=== PATIENT | male | born 1965 | race Hispanic/Latino ===

== ENCOUNTER 2017-04-01 17:38 | Emergency (ER) | payer SELFPAY ==
[2017-04-01 17:38] VITALS: BMI 21.5
[2017-04-01 17:48] VITALS: O2SAT 98
--- NOTE | 2017-04-01 18:28 | ED PDOC ---
HPI: Chest Pain Time Seen by Provider: 04/01/17 17:51 Chief Complaint (Nursing): Chest Pain Chief Complaint (Provider): Chest pain, elbow pain, head pain History Per: Patient History/Exam Limitations: no limitations Onset/Duration Of Symptoms: Days Current Symptoms Are (Timing): Still Present Modifying Factors: None Additional Complaint(s): Pt states he has been having chest pain for 2 weeks. Pt states he has history of [place] and was recently discharged. Pt states he was also diagnosed with strep pharyngitis but he could not afford the antibiotics. PT reports pain sharp, left sided. Pt under arrest and states he was injured because he resisted. Pt reports headache and states his head hit the ground and left elbow pain. Past Medical History Reviewed: Historical Data, Nursing Documentation, Vital Signs Vital Signs: Last Vital Signs Temp 98.0 F 04/01/17 17:44 Pulse 80 04/01/17 17:44 Resp 22 04/01/17 17:44 BP 119/63 04/01/17 17:44 Pulse Ox 98 04/01/17 18:30 - Medical History PMH: Anxiety, CAD, Depression (2003), Pneumonia Denies: Diabetes, Hepatitis, HIV, HTN, Chronic Kidney Disease, Seizures, Sexually Transmitted Disease - Surgical History Surgical History: No Surg Hx - Family History Family History: States: Unknown Family Hx - Living Arrangements Living Arrangements: With Family - Social History Current smoker - smoking cessation education provided: Yes Alcohol: Occasional Drugs: Denies - Immunization History Hx Tetanus Toxoid Vaccination: No Hx Influenza Vaccination: No Hx Pneumococcal Vaccination: No - Home Medications Home Medications: Ambulatory Orders Medication Instructions Recorded Azithromycin [Zithromax] 250 mg PO ASDIR #6 tablet 12/29/15 Fluticasone Propionate [Flonase] 1 spr NS BID #0 bottle 12/29/15 Oseltamivir [Tamiflu Cap] 75 mg PO BID #10 cap 12/29/15 Amoxicillin/Clavulanate [Augmentin 1 tab PO BID #14 tab 01/04/16 875 MG-125 MG] Ondansetron ODT [Zofran ODT] 4 mg PO Q8 PRN #10 odt 01/04/16 Pseudoephedrine [Sudafed Tab] 60 mg PO Q6 PRN #24 tab 01/04/16 oxyCODONE/Acetaminophen [Percocet 1 ea PO Q6 PRN #15 tab 01/04/16 5/325 mg Tab] - Allergies Allergies/Adverse Reactions: Allergies Allergy/AdvReac Type Severity Reaction Status Date / Time Penicillins Allergy RASH Verified 01/04/16 14:44 seafood Allergy SWELLING Uncoded 01/04/16 14:44 Review of Systems ROS Statement: Except As Marked, All Systems Reviewed And Found Negative Cardiovascular: Positive for: Chest Pain Respiratory: Negative for: Cough, Shortness of Breath, SOB with Exertion Skin: Positive for: Other Neurological: Positive for: Headache Physical Exam - Reviewed Nursing Documentation Reviewed: Yes Vital Signs Reviewed: Yes - Physical Exam Appears: Positive for: Well, Non-toxic, No Acute Distress Head Exam: Positive for: ATRAUMATIC, NORMAL INSPECTION, NORMOCEPHALIC Skin: Positive for: Warm. Negative for: Normal Color (Right temporal abrasion, multiple abrasion on the left elbow) Eye Exam: Positive for: Normal appearance, EOMI, PERRL ENT: Positive for: Normal ENT Inspection Neck: Positive for: Normal, Painless ROM Cardiovascular/Chest: Positive for: Regular Rate, Rhythm Respiratory: Positive for: CNT, Normal Breath Sounds Pulses-Radial (L): 2+ Pulses-Radial (R): 2+ Gastrointestinal/Abdominal: Positive for: Normal Exam, Bowel Sounds, Soft Back: Positive for: Normal Inspection Extremity: Positive for: Normal ROM (Pt seen moving left arm while in room, on my arrival reports limited ROM due to pain ) Neurologic/Psych: Positive for: Alert, Oriented - Laboratory Results Result Diagrams: 04/01/17 18:30 - ECG O2 Sat by Pulse Oximetry: 98 Medical Decision Making Medical Decision Making: CXR - Normal Repeat troponin order placed Elbow x-ray normal Head CT normal. Disposition - Clinical Impression Clinical Impression: Facial injury, Abrasion, Elbow pain, Chest pain - Patient ED Disposition Is Patient to be Admitted: Transfer of Care - Disposition Disposition: Transfer of Care Disposition Time: 19:23 Condition: GOOD
[2017-04-01 18:42] LABS: BASO # 0.1 K/uL (0.0-0.2); BASO % 0.8 % (0.0-2.0); EOS # 0.1 K/uL (0.0-0.7); EOS % 1.5 % (0.0-4.0); HEMATOCRIT 43.3 % (35.0-51.0); LYMPH # 1.5 K/uL (1.0-4.3); LYMPH % 19.5 % (20.0-40.0); MEAN CELL VOLUME 90.9 fl (80.0-94.0); MEAN CORPUSCULAR HEMOGLOBIN 29.7 pg (27.0-31.0); MEAN CORPUSCULAR HGB CONC 32.7 g/dL (33.0-37.0); MEAN PLATELET VOLUME 8.1 fl (7.2-11.7); MONO # 0.9 K/uL (0.0-0.8); MONO % 12.1 % (0.0-10.0); NEUT % 66.1 % (50.0-75.0); RED CELL DISTRIBUTION WIDTH 13.9 % (11.5-14.5); WHITE BLOOD COUNT 7.5 K/uL (4.8-10.8)
[2017-04-01 19:03] LABS: ALB/GLOB RATIO 1.4 (1.0-2.1); ALKALINE PHOSPHATASE 72 U/L (38-126); ALT/SGPT 60 U/L (21-72); AST/SGOT 53 U/L (17-59); BILIRUBIN,TOTAL 0.4 mg/dl (0.2-1.3); BLOOD UREA NITROGEN 22 mg/dl (9-20); CALCIUM 8.9 mg/dL (8.4-10.2); CARBON DIOXIDE 26 mmol/L (22-30); CHLORIDE 106 mmol/L (98-107); GFR AFRICAN-AMERICAN > 60; GLUCOSE,RANDOM 97 mg/dL (75-110); POTASSIUM 4.5 MMOL/L (3.6-5.0); SODIUM 143 mmol/l (132-148); TOTAL PROTEIN 7.6 G/DL (6.3-8.2)
--- NOTE | 2017-04-01 19:17 | CT ---
PROCEDURE: CT HEAD WITHOUT CONTRAST. HISTORY: HEAD INJURY COMPARISON: Comparison is made to the previous study dated 01/04/2016 TECHNIQUE: Axial computed tomography images were obtained through the head/brain without intravenous contrast. Radiation dose: Total exam DLP = 920.21 mGy-cm. This CT exam was performed using one or more of the following dose reduction techniques: Automated exposure control, adjustment of the mA and/or kV according to patient size, and/or use of iterative reconstruction technique. FINDINGS: HEMORRHAGE: No intracranial hemorrhage. BRAIN: No mass effect or edema. No atrophy or chronic microvascular ischemic changes. VENTRICLES: Unremarkable. No hydrocephalus. CALVARIUM: Unremarkable. PARANASAL SINUSES: Unremarkable as visualized. No significant inflammatory changes. MASTOID AIR CELLS: Unremarkable as visualized. No inflammatory changes. OTHER FINDINGS: None. IMPRESSION: No evidence of acute intracranial hemorrhage intracranial collection mass effect or midline shift.
--- NOTE | 2017-04-01 20:32 | ED PDOC ---
- Laboratory Results Result Diagrams: 04/01/17 18:30 04/01/17 18:30 - ECG O2 Sat by Pulse Oximetry: 98 Pulse Ox Interpretation: Normal - Progress ED Course And Treament: Case was signed out to senior medical writer from [facility] pending diagnostic testing results and final disposition. 20:30: Second troponin to be drawn at 22:30. Crisis eval pending. 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 Campbell, patient does not meet criteria for psych admission and is stable for discharge. 23:30: Second trop is negative. Patient is medically and psychiatrically stable for incarceration. Disposition - Clinical Impression Clinical Impression: Facial injury, Abrasion, Elbow pain, Chest pain - POA Present On Arrival: None - Disposition Disposition: Discharged/Transfer to Law Enforcement Disposition Time: 23:31 Condition: FAIR Additional Instructions: Patient is medically and psychiatrically stable for incarceration Instructions: Chest Pain (ED), Elbow Sprain (ED), Abrasion (ED), Facial Contusion (ED)
--- NOTE | 2017-04-01 22:23 | RAD ---
HISTORY: chest pain COMPARISON: Chest x-ray performed 12/27/15 TECHNIQUE: Chest PA and lateral FINDINGS: LUNGS: Hyperinflation may be seen in the setting of COPD. No focal consolidation. Please note that chest x-ray has limited sensitivity for the detection of pulmonary masses. PLEURA: No significant pleural effusion identified. No definite pneumothorax . CARDIOVASCULAR: The cardiomediastinal silhouette appears within normal limits of size. OSSEOUS STRUCTURES: No acute osseous abnormality identified. VISUALIZED UPPER ABDOMEN: Unremarkable. OTHER FINDINGS: None. IMPRESSION: Hyperinflation may be seen in the setting of COPD.
[2017-04-01 23:48] VITALS: BP 103/67; PULSE 84; RESP 15; TEMP 98.2
--- NOTE | 2017-04-02 09:35 | RAD ---
Indication: Elbow pain Left elbow radiographs Comparison: None available Findings: No acute displaced fracture or dislocation identified. No significant joint effusion appreciated. Soft tissues appear grossly unremarkable. No evidence of radiopaque foreign body. Impression: No acute displaced fracture or dislocation identified. If high clinical index of suspicion for occult fracture, recommend further evaluation with cross-sectional imaging.
== END 2017-04-01 23:52 ==
LOC: H.ER 17:38
DX: R07.9 Chest pain, unspecified (principal); S00.81XA Abrasion of other part of head, initial encounter; S09.93XA Unspecified injury of face, initial encounter; M25.522 Pain in left elbow; Y35.813A Legal intervention involving manhandling, suspect injured, initial encounter; Y92.89 Other specified places as the place of occurrence of the external cause; F17.200 Nicotine dependence, unspecified, uncomplicated; F32.9 Major depressive disorder, single episode, unspecified; F41.9 Anxiety disorder, unspecified; I25.10 Atherosclerotic heart disease of native coronary artery without angina pectoris; Z88.0 Allergy status to penicillin

== ENCOUNTER 2017-05-23 11:03 | Emergency (ER) | payer SELFPAY ==
[2017-05-23 11:04] VITALS: BMI 21.5
[2017-05-23 11:27] VITALS: TEMP 97.1; O2SAT 100
[2017-05-23 12:03] LABS: BASO # 0.1 K/uL (0.0-0.2); BASO % 0.9 % (0.0-2.0); EOS # 0.1 K/uL (0.0-0.7); HEMOGLOBIN 13.8 g/dL (12.0-18.0); LYMPH # 1.4 K/uL (1.0-4.3); LYMPH % 18.9 % (20.0-40.0); MEAN CELL VOLUME 89.6 fl (80.0-94.0); MEAN CORPUSCULAR HEMOGLOBIN 30.2 pg (27.0-31.0); MEAN CORPUSCULAR HGB CONC 33.8 g/dL (33.0-37.0); MEAN PLATELET VOLUME 7.8 fl (7.2-11.7); MONO # 0.6 K/uL (0.0-0.8); MONO % 8.7 % (0.0-10.0); NEUT % 69.5 % (50.0-75.0); RBC 4.57 Mil/uL (4.40-5.90); RED CELL DISTRIBUTION WIDTH 14.2 % (11.5-14.5); WHITE BLOOD COUNT 7.2 K/uL (4.8-10.8)
[2017-05-23 12:21] LABS: ALB/GLOB RATIO 1.3 (1.0-2.1); ALT/SGPT 41 U/L (21-72); AST/SGOT 24 U/L (17-59); BLOOD UREA NITROGEN 18 mg/dl (9-20); CALCIUM 8.9 mg/dL (8.4-10.2); GFR AFRICAN-AMERICAN > 60; GFR NON-AFRICAN AMERICAN > 60
[2017-05-23 12:24] LABS: PROTHROMBIN TIME 11.7 Seconds (9.8-13.1)
[2017-05-23 12:25] LABS: PARTIAL THROMBOPLASTIN TIME 36.7 Seconds (25.6-37.1)
--- NOTE | 2017-05-23 12:48 | RAD ---
HISTORY: Chest pain COMPARISON: 04/01/2017. FINDINGS: LUNGS: The lungs are well inflated. There is airspace disease in the left lower lobe. The right lung is clear. PLEURA: No significant pleural effusion identified, no pneumothorax apparent. CARDIOVASCULAR: Normal. OSSEOUS STRUCTURES: No significant abnormalities. VISUALIZED UPPER ABDOMEN: Normal. OTHER FINDINGS: None. IMPRESSION: Suspect left lower lobe atelectasis/ pneumonia. Follow-up after medical management is recommended to ensure complete resolution.
--- NOTE | 2017-05-23 13:15 | ED PDOC ---
HPI: Chest Pain Time Seen by Provider: 05/23/17 11:24 Chief Complaint (Nursing): Chest Pain Chief Complaint (Provider): Chest Pain History Per: Patient History/Exam Limitations: no limitations Onset/Duration Of Symptoms: Hrs (Since 7:30) Current Symptoms Are (Timing): Still Present Additional Complaint(s): 51 y/o male with a past medical history of myocardial infraction (x2) presents to the emergency department with a complaint of an intermittent left-sided chest pain since 7:30 this morning. Denies taking medications for the relief of pain, radiation of pain elsewhere, shortness of breath and nausea. Past Medical History Reviewed: Historical Data, Nursing Documentation, Vital Signs Vital Signs: Last Vital Signs Temp 97.1 F L 05/23/17 11:24 Pulse 56 L 05/23/17 12:50 Resp 18 05/23/17 12:50 BP 115/76 05/23/17 12:50 Pulse Ox 100 05/23/17 13:39 - Medical History PMH: Anxiety, CAD, Depression (2003), Pneumonia Denies: Diabetes, Hepatitis, HIV, HTN, Chronic Kidney Disease, Seizures, Sexually Transmitted Disease Other PMH: Myocardial infraction x2 - Surgical History Surgical History: No Surg Hx - Family History Family History: States: Unknown Family Hx - Social History Current smoker - smoking cessation education provided: No Alcohol: None Drugs: Denies (Use of cocaine) - Immunization History Hx Tetanus Toxoid Vaccination: No Hx Influenza Vaccination: No Hx Pneumococcal Vaccination: No - Home Medications Home Medications: Ambulatory Orders Medication Instructions Recorded No Known Home Med 05/23/17 - Allergies Allergies/Adverse Reactions: Allergies Allergy/AdvReac Type Severity Reaction Status Date / Time Penicillins Allergy RASH Verified 01/04/16 14:44 seafood Allergy SWELLING Uncoded 01/04/16 14:44 Review of Systems ROS Statement: Except As Marked, All Systems Reviewed And Found Negative Cardiovascular: Positive for: Chest Pain (Left-sided) Respiratory: Negative for: Shortness of Breath Gastrointestinal: Negative for: Nausea Physical Exam - Reviewed Nursing Documentation Reviewed: Yes Vital Signs Reviewed: Yes - Physical Exam Appears: Positive for: Non-toxic, No Acute Distress Head Exam: Positive for: ATRAUMATIC, NORMAL INSPECTION, NORMOCEPHALIC Skin: Positive for: Normal Color, Warm, Dry Eye Exam: Positive for: EOMI, Normal appearance, PERRL Neck: Positive for: Normal, Painless ROM, Supple Cardiovascular/Chest: Positive for: Regular Rate, Rhythm. Negative for: Murmur Respiratory: Positive for: Normal Breath Sounds. Negative for: Accessory Muscle Use, Respiratory Distress Gastrointestinal/Abdominal: Positive for: Normal Exam, Soft. Negative for: Tenderness Back: Positive for: Normal Inspection. Negative for: Vertebral Tenderness Extremity: Positive for: Normal ROM. Negative for: Pedal Edema, Deformity Neurologic/Psych: Positive for: Alert, Oriented - Laboratory Results Result Diagrams: 05/23/17 11:58 05/23/17 11:58 - ECG O2 Sat by Pulse Oximetry: 100 (RA) Pulse Ox Interpretation: Normal Medical Decision Making Medical Decision Making: Time: 11:37 Initial impression: Chest pain Initial plan: --Electrocardiogram --COMP Metabolic Panel --Troponin I --EKG-ED --CBC w/ differential --Partial Thromboplastin Time (COAG) --Prothrombin Time (COAG) --Chest Portable (RAD) --Reevaluation Time: 12:38 --Drug Screen, Urine --Aspirin 325 mg PO Time: 12:46 --Chest X-ray FINDINGS: LUNGS: The lungs are well inflated. There is airspace disease in the left lower lobe. The right lung is clear. PLEURA: No significant pleural effusion identified, no pneumothorax apparent. CARDIOVASCULAR: Normal. OSSEOUS STRUCTURES: No significant abnormalities. VISUALIZED UPPER ABDOMEN: Normal. OTHER FINDINGS: None. IMPRESSION: Suspect left lower lobe atelectasis/ pneumonia. Follow-up after medical management is recommended to ensure complete resolution. Time: 13:15 --At this time, blood was found on bed. Patient eloped from the ER. Scribe Attestation: Documented by Luci Blanco, acting as a scribe for Delaney Winston MD. Provider Scribe Attestation: All medical record entries made by the Scribe were at my direction and personally dictated by me. I have reviewed the chart and agree that the record accurately reflects my personal performance of the history, physical exam, medical decision making, and the department course for this patient. I have also personally directed, reviewed, and agree with the discharge instructions and disposition. Disposition - Clinical Impression Clinical Impression: Chest pain - Disposition Disposition: Eloped Disposition Time: 13:15 Condition: STABLE
[2017-05-23 13:19] VITALS: BP 115/76; PULSE 56; RESP 18
--- NOTE | 2017-05-24 08:27 | CARD ---
APPROVED REPORT EKG Measurement Heart [id number] <Conclusion> Sinus bradycardia Voltage criteria for left ventricular hypertrophy Early repolarization Abnormal ECG
== END 2017-05-23 13:34 | disposition left against medical advice (07) ==
LOC: H.ER 11:03
DX: R07.89 Other chest pain (principal); F41.9 Anxiety disorder, unspecified; I25.10 Atherosclerotic heart disease of native coronary artery without angina pectoris; Z79.82 Long term (current) use of aspirin; Z88.0 Allergy status to penicillin

== ENCOUNTER 2017-12-09 02:28 | Observation (INO) | payer MEDICAID ==
[2017-12-09] MEDS ORDERED: Sodium Chloride 0.9% 1,000 ML IV STA (03:20)
[2017-12-09 03:26] LABS: ABG ALLEN TEST YES; ARTERIAL BLOOD GAS HCO3 26.4 mmol/L (21-28); ARTERIAL BLOOD GAS O2 CAPACITY 18.7 mL/dL (16-24); ARTERIAL BLOOD GAS O2 CONTENT 18.5 ML/dL (15-23); ARTERIAL BLOOD GAS O2 SAT 98.9 % (95-98); ARTERIAL BLOOD GAS PCO2 47 mm/Hg (35-45); ARTERIAL BLOOD GAS PH 7.38 (7.35-7.45); ARTERIAL BLOOD GAS PO2 150 mm/Hg (80-100); ARTERIAL BLOOD GAS TCO2 29.2 mmol/L (22-28)
[2017-12-09 03:39] LABS: BASO # 0.1 K/uL (0.0-0.2); BASO % 0.8 % (0.0-2.0); EOS # 0.4 K/uL (0.0-0.7); EOS % 4.8 % (0.0-4.0); HEMOGLOBIN 13.7 g/dL (12.0-18.0); LYMPH # 2.4 K/uL (1.0-4.3); LYMPH % 30.2 % (20.0-40.0); MEAN CELL VOLUME 89.6 fl (80.0-94.0); MEAN CORPUSCULAR HGB CONC 33.5 g/dL (33.0-37.0); MEAN PLATELET VOLUME 7.9 fl (7.2-11.7); MONO # 0.8 K/uL (0.0-0.8); MONO % 10.5 % (0.0-10.0); NEUT # 4.3 K/uL (1.8-7.0); NEUT % 53.7 % (50.0-75.0); NRBC % 0.1 % (0.0-0.0); RBC 4.55 Mil/uL (4.40-5.90); RED CELL DISTRIBUTION WIDTH 13.9 % (11.5-14.5)
--- NOTE | 2017-12-09 03:41 | ED PDOC ---
HPI: Chest Pain Time Seen by Provider: 12/09/17 02:38 Chief Complaint (Nursing): Chest Pain Chief Complaint (Provider): Chest Pain History Per: Patient History/Exam Limitations: no limitations Onset/Duration Of Symptoms: Days (x 2) Current Symptoms Are (Timing): Still Present Additional Complaint(s): 52 year old male with no significant medical history presents of the ED with a worsening headache and nausea, onset yesterday morning (20 hours prior). 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 Also complains of chest tightness. Smokes a pack of day until recently when he cut down to a half pack. The symptoms have gotten worse this last hour. Denies fever, cough, neck pain, or shortness of breath. PMD: none provided Past Medical History Reviewed: Historical Data, Nursing Documentation, Vital Signs Vital Signs: Last Vital Signs Temp 98.2 F 12/09/17 05:56 Pulse 56 L 12/09/17 05:56 Resp 17 12/09/17 05:56 BP 121/59 L 12/09/17 05:56 Pulse Ox 100 12/09/17 05:56 - Medical History PMH: Anxiety, CAD, Depression (2003), Pneumonia Denies: Diabetes, Hepatitis, HIV, HTN, Chronic Kidney Disease, Seizures, Sexually Transmitted Disease - Surgical History Surgical History: No Surg Hx - Family History Family History: States: Unknown Family Hx - Social History Current smoker - smoking cessation education provided: Yes (Heavy Smoker > 10 cigarettes) - Immunization History Hx Tetanus Toxoid Vaccination: No Hx Influenza Vaccination: No Hx Pneumococcal Vaccination: No - Home Medications Home Medications: Ambulatory Orders Medication Instructions Recorded No Known Home Med 05/23/17 - Allergies Allergies/Adverse Reactions: Allergies Allergy/AdvReac Type Severity Reaction Status Date / Time Penicillins Allergy RASH Verified 01/04/16 14:44 seafood Allergy SWELLING Uncoded 01/04/16 14:44 Review of Systems ROS Statement: Except As Marked, All Systems Reviewed And Found Negative Constitutional: Negative for: Fever Cardiovascular: Positive for: Chest Pain Respiratory: Negative for: Cough, Shortness of Breath Gastrointestinal: Positive for: Nausea Musculoskeletal: Negative for: Neck Pain Neurological: Positive for: Headache Physical Exam - Reviewed Nursing Documentation Reviewed: Yes Vital Signs Reviewed: Yes - Physical Exam Appears: Positive for: Non-toxic, Uncomfortable Head Exam: Positive for: ATRAUMATIC, NORMOCEPHALIC Skin: Positive for: Normal Color, Warm, Dry Eye Exam: Positive for: EOMI, Normal appearance, PERRL Neck: Positive for: Normal, Painless ROM, Supple Cardiovascular/Chest: Positive for: Regular Rate, Rhythm Respiratory: Positive for: Normal Breath Sounds. Negative for: Respiratory Distress Gastrointestinal/Abdominal: Positive for: Normal Exam, Soft Back: Positive for: Normal Inspection Extremity: Positive for: Normal ROM. Negative for: Deformity Neurologic/Psych: Positive for: Alert, Oriented - Laboratory Results Result Diagrams: 12/09/17 03:35 12/09/17 03:35 - ECG O2 Sat by Pulse Oximetry: 98 (RA) Pulse Ox Interpretation: Normal Medical Decision Making Medical Decision Making: Time: 03:12 Impression: 52 year old male with headache and nausea in setting of carbon monoxide exposure Initial Plan: --EKG --ABG --Alcohol serum --CMP --Urine drug --Troponin I --CBC with differentials --Sodium chloride IV 1,000 mls/hr --Toradol 10 mg IVP --Zofran Inj 4 mg IV Labs revealed no clinically significant abnormalities except for elevated carboxyhemoglobin levels. Urine drug screen is positive for cocaine. Upon further questioning, he admits to using cocaine 1 week ago. Patient will be admitted into observation for cocaine abuse, chest pain and carbon monoxide exposure to the service of Dr. Huff. Scribe Attestation: Documented by Olga Milian, acting as a scribe for Chai Cody MD. Provider Scribe Attestation: All medical record entries made by the Scribe were at my direction and personally dictated by me. I have reviewed the chart and agree that the record accurately reflects my personal performance of the history, physical exam, medical decision making, and the department course for this patient. I have also personally directed, reviewed, and agree with the discharge instructions and disposition. Disposition - Clinical Impression Clinical Impression: Chest pain, Cocaine abuse, Carbon monoxide exposure - Patient ED Disposition Is Patient to be Admitted: Yes - Disposition Disposition Time: 04:20 Condition: FAIR Patient Signed Over To: Tee Huff - Pt Status Changed To: Hospital Disposition Of: Observation
[2017-12-09 03:46] LABS: ALB/GLOB RATIO 1.4 (1.0-2.1); ALBUMIN 4.1 g/dL (3.5-5.0); ALT/SGPT 37 U/L (21-72); AST/SGOT 25 U/L (17-59); BLOOD UREA NITROGEN 25 mg/dl (9-20); GFR AFRICAN-AMERICAN > 60; GFR NON-AFRICAN AMERICAN > 60
[2017-12-09 03:53] LABS: BARBITURATES, UR NEGATIVE (NEGATIVE); BENZODIAZEPINES, UR NEGATIVE (NEGATIVE); OPIATES, UR NEGATIVE (NEGATIVE); PHENCYCLIDINE, UR NEGATIVE (NEGATIVE)
--- NOTE | 2017-12-09 04:33 | CP.PCM.HP ---
History of Present Illness - History of Present Illness History of Present Illness: PMD: None Chief complaint: Chest Pain The patient was seen and examined in the ED HPI: The hx is obtained from the medical records as the patient is very sleepy only answering by shaking the head. He is a 52 years old male with hx of CAD, Pneumonia, Depression and CAD comes with a Precordial chest tight that is continuous associated with Nausea and headache. 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 He recently cut down from 1 pack daily to half pack daily of cigarettes. He comes because of worsening of the symptoms. No coughing, SOB, dizziness PMH: Anxiety, CAD, Depression (2003), Pneumonia PSH: No Surg Hx SH: occasional Alcohol; smokes Heavily; Cocaine drug use; FH: States: Unknown Family Hx Allergies: PCN / Sea Food Medicine: None Present on Admission - Present on Admission Any Indicators Present on Admission: No History of DVT/PE: No History of Uncontrolled Diabetes: No Urinary Catheter: No Decubitus Ulcer Present: No Review of Systems - Review of Systems Review of Systems: Review of Symptoms limited because the patient is sleepy - Constitutional Constitutional: Headache - EENT Eyes: Requires Corrective Lenses Nose/Mouth/Throat: absent: Epistaxis, Nasal Congestion - Cardiovascular Cardiovascular: Chest Pain - Gastrointestinal Gastrointestinal: Melena Past Patient History - Past Medical History & Family History Past Medical History?: Yes - Past Social History Smoking Status: Heavy Smoker > 10 Cigarettes Daily Chewing Tobacco Use: No Cigar Use: No Drugs: Cocaine - CARDIAC Hx Hypertension: No Other/Comment: Coronary disease - PULMONARY Hx Pneumonia: Yes Other/Comment: Influenza 2/16 - NEUROLOGICAL Hx Neurological Disorder: No Hx Seizures: No - HEENT Hx HEENT Problems: No - RENAL Hx Chronic Kidney Disease: No - ENDOCRINE/METABOLIC Hx Endocrine Disorders: No - HEMATOLOGICAL/ONCOLOGICAL Hx Blood Disorders: No Hx Human Immunodeficiency Virus (HIV): No - INTEGUMENTARY Hx Dermatological Problems: No - MUSCULOSKELETAL/RHEUMATOLOGICAL Hx Musculoskeletal Disorders: No Hx Falls: No - GASTROINTESTINAL Hx Gastrointestinal Disorders: No - GENITOURINARY/GYNECOLOGICAL Hx Sexually Transmitted Disorders: No - PSYCHIATRIC Hx Anxiety: Yes Hx Depression: Yes (2003) Hx Schizophrenia: Yes - SURGICAL HISTORY Hx Surgeries: Yes Hx Herniorrhaphy: Yes (age 3) - ANESTHESIA Hx Anesthesia: Yes Hx Anesthesia Reactions: No Hx Malignant Hyperthermia: No Meds Allergies/Adverse Reactions: Allergies Allergy/AdvReac Type Severity Reaction Status Date / Time Penicillins Allergy RASH Verified 01/04/16 14:44 seafood Allergy SWELLING Uncoded 01/04/16 14:44 Physical Exam - Constitutional Appears: No Acute Distress - Head Exam Head Exam: ATRAUMATIC, NORMAL INSPECTION, NORMOCEPHALIC - Eye Exam Eye Exam: EOMI, Normal appearance Pupil Exam: NORMAL ACCOMODATION - ENT Exam ENT Exam: Mucous Membranes Dry, Normal Exam - Neck Exam Neck exam: Positive for: Full Rom, Normal Inspection. Negative for: Lymphadenopathy, Tenderness - Respiratory Exam Respiratory Exam: Clear to Auscultation Bilateral. absent: Rales, Rhonchi, Wheezes - Cardiovascular Exam Cardiovascular Exam: REGULAR RHYTHM, RRR, +S1, +S2 - GI/Abdominal Exam GI & Abdominal Exam: Normal Bowel Sounds, Soft. absent: Mass, Organomegaly, Tenderness - Rectal Exam Rectal Exam: Deferred - Extremities Exam Extremities exam: Positive for: full ROM, normal inspection. Negative for: calf tenderness, pedal edema - Back Exam Back exam: NORMAL INSPECTION. absent: CVA tenderness (L), CVA tenderness (R) - Neurological Exam Neurological exam: CN II-XII Intact, Oriented x3, Reflexes Normal Additional comments: Sleepy - Psychiatric Exam Psychiatric exam: Normal Affect, Normal Mood - Skin Skin Exam: Dry, Intact, Normal Color, Warm Results - Vital Signs Recent Vital Signs: Last Vital Signs Temp 97.5 F L 12/09/17 02:46 Pulse 58 L 12/09/17 03:14 Resp 17 12/09/17 02:46 BP 112/53 L 12/09/17 02:46 Pulse Ox 98 12/09/17 04:20 - Labs Result Diagrams: 12/09/17 03:35 12/09/17 03:35 Labs: Laboratory Results - last 24 hr 12/09/17 12/09/17 12/09/17 03:23 03:35 03:35 WBC 8.0 RBC 4.55 Hgb 13.7 Hct 40.8 MCV 89.6 MCH 30.0 MCHC 33.5 RDW 13.9 Plt Count 251 MPV 7.9 Neut % (Auto) 53.7 Lymph % (Auto) 30.2 [place] % (Auto) 10.5 H Eos % (Auto) 4.8 H Baso % (Auto) 0.8 Neut # 4.3 Lymph # 2.4 [place] # 0.8 Eos # 0.4 Baso # 0.1 pCO2 47 H pO2 150 H HCO3 26.4 ABG pH 7.38 ABG Total CO2 29.2 H ABG O2 Saturation 98.9 H ABG O2 Content 18.5 ABG Base Excess 2.0 ABG Hemoglobin 14.0 ABG Carboxyhemoglobin 3.7 H POC ABG HHb (Measured) 1.0 ABG Methemoglobin 2.6 ABG O2 Capacity 18.7 Kali Test Yes A-a O2 Difference 19.0 Hgb O2 Saturation 92.6 L Vent Mode N/c FiO2 32.0 Sodium 143 Potassium 4.5 Chloride 105 Carbon Dioxide 26 Anion Gap 17 BUN 25 H Creatinine 0.7 L Est GFR ( Amer) > 60 Est GFR (Non-Af Amer) > 60 Random Glucose 86 Calcium 9.0 Total Bilirubin 0.3 AST 25 ALT 37 Alkaline Phosphatase 61 Troponin I < 0.0120 Total Protein 7.1 Albumin 4.1 Globulin 3.0 Albumin/Globulin Ratio 1.4 Urine Opiates Screen Urine Methadone Screen Ur Barbiturates Screen Ur Phencyclidine Scrn Ur Amphetamines Screen U Benzodiazepines Scrn U Oth Cocaine Metabols U Cannabinoids Screen Alcohol, Quantitative < 10 12/09/17 03:35 WBC RBC Hgb Hct MCV MCH MCHC RDW Plt Count MPV Neut % (Auto) Lymph % (Auto) [place] % (Auto) Eos % (Auto) Baso % (Auto) Neut # Lymph # [place] # Eos # Baso # pCO2 pO2 HCO3 ABG pH ABG Total CO2 ABG O2 Saturation ABG O2 Content ABG Base Excess ABG Hemoglobin ABG Carboxyhemoglobin POC ABG HHb (Measured) ABG Methemoglobin ABG O2 Capacity Kali Test A-a O2 Difference Hgb O2 Saturation Vent Mode FiO2 Sodium Potassium Chloride Carbon Dioxide Anion Gap BUN Creatinine Est GFR ( Amer) Est GFR (Non-Af Amer) Random Glucose Calcium Total Bilirubin AST ALT Alkaline Phosphatase Troponin I Total Protein Albumin Globulin Albumin/Globulin Ratio Urine Opiates Screen Negative Urine Methadone Screen Negative Ur Barbiturates Screen Negative Ur Phencyclidine Scrn Negative Ur Amphetamines Screen Negative U Benzodiazepines Scrn Negative U Oth Cocaine Metabols Positive H U Cannabinoids Screen Negative Alcohol, Quantitative - Imaging and Cardiology Chest x-ray Status: Image reviewed by me Additional comment: Interstitial infiltrate at the right para-cardiac border Assessment & Plan - Assessment and Plan (Free Text) Assessment: #. Chest Pain #. RLL Infiltrate r/o Pneumonia #. Carbon Monoxide Exposure #. Dehydration #. 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 #. Chest Pain r/o ACS although patient also has a RLL infiltrate - Serial Troponin - EKG - Lipid profile - ASA - Lipitor #. RLL Infiltrate r/o Pneumonia - consult Dr Joe Pulmonary - Rapid Influenza test - Azithromycin #. Carbon Monoxide Exposure - NRBM Oxygen - Toradol - Zofran for nausea - ABG #. Dehydration - IV Fluid - Follow Renal labs #. Cocaine Abuse - Ativan for Agitation #. DVT prophylaxis with Lovenox #. Code Status: Full - Date & Time Date: 12/09/17 Time: 04:33
[2017-12-09] MEDS: Sodium Chloride 0.9% 1,000 ML IV SCH ×3 (05:31→20:23)
[2017-12-09] MEDS: Azithromycin 500 MG in Sodium Chloride 0.9% 250 ML IVPB SCH (05:32)
[2017-12-09] MEDS ORDERED: Azithromycin 500 MG IV IVPB ONE (05:35)
[2017-12-09 06:20] LABS: HDL CHOLESTEROL 46 MG/DL (30-70)
[2017-12-09 06:32] LABS: LDL CHOLESTEROL 81 mg/dL (0-129)
[2017-12-09] MEDS: Enoxaparin 40 mg Syringe SC SCH (09:38)
--- NOTE | 2017-12-09 10:23 | RAD ---
HISTORY: chest pain COMPARISON: Comparison chest dated 05/23/2017 FINDINGS: LUNGS: Mild bibasilar atelectasis right greater than left; developing lower lobe infiltrate could be excluded with followup radiographs PLEURA: No significant pleural effusion identified, no pneumothorax apparent. CARDIOVASCULAR: Normal. OSSEOUS STRUCTURES: No significant abnormalities. VISUALIZED UPPER ABDOMEN: Normal. OTHER FINDINGS: None. IMPRESSION: Mild bibasilar atelectasis right greater than left ; developing lower lobe infiltrate could be excluded with followup radiographs
[2017-12-09] MEDS ORDERED: Pneumococcal 23-Valent Vaccine IM ONE (16:39)
[2017-12-09] MEDS ORDERED: Influenza Vaccine 18yr & older 0.5 ML/45 MCG SYR IM ONE (16:39)
--- NOTE | 2017-12-09 17:18 | CP.PCM.CON ---
History of Present Illness - History of Present Illness History of Present Illness: Pulmonary consult for a 52 y/o M, Hx of PNA, CAD, Depression. Came to ED [facility] on 12/09/16 c/o of Precordial Chest pain associated to headache and nausea with no relief. 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 CXR reveals: Mild bibasilar atelectasis R > L. Developing lower lobe infiltrate could be excluded. Pt denied: SOB, cough, hemoptysis, dizziness, palpitations, syncope, night sweats, abdominal pain, n/v/d, urinary symptoms, sick contact, recent travel out of [place]. PMHx: Schizophrenia 2014, multiple facial Fx 2nd to trauma 2015, Hx PNA, Depression, CAD. Review of Systems - Constitutional Constitutional: Headache - EENT Eyes: Requires Corrective Lenses Ears: Other (negative) Nose/Mouth/Throat: Other (negative) - Cardiovascular Cardiovascular: Chest Pain, Slow Heart Rate - Respiratory Respiratory: Other (negative) - Gastrointestinal Gastrointestinal: Other (negative) - Genitourinary Genitourinary: Other (negative) - Musculoskeletal Musculoskeletal: Other (negative) - Integumentary Integumentary: Other (negative) - Neurological Neurological: Other (negative) - Psychiatric Psychiatric: Anxiety - Endocrine Endocrine: Other (negative) - Hematologic/Lymphatic Hematologic: Other (negative) Past Patient History - Past Medical History & Family History Past Medical History?: Yes - Past Social History Smoking Status: Heavy Smoker > 10 Cigarettes Daily Alcohol: None Drugs: Cocaine Home Situation {Lives}: With Family - CARDIAC Hx Cardiac Disorders: Yes - PULMONARY Hx Respiratory Disorders: No - NEUROLOGICAL Hx Neurological Disorder: No - HEENT Hx HEENT Problems: No - RENAL Hx Chronic Kidney Disease: No - ENDOCRINE/METABOLIC Hx Endocrine Disorders: No - HEMATOLOGICAL/ONCOLOGICAL Hx Blood Disorders: No Hx AIDS: No Hx Human Immunodeficiency Virus (HIV): No - INTEGUMENTARY Hx Dermatological Problems: No - MUSCULOSKELETAL/RHEUMATOLOGICAL Hx Musculoskeletal Disorders: No Hx Falls: No - GASTROINTESTINAL Hx Gastrointestinal Disorders: No - GENITOURINARY/GYNECOLOGICAL Hx Genitourinary Disorders: No - PSYCHIATRIC Hx Psychophysiologic Disorder: Yes Hx Anxiety: Yes Hx Depression: Yes Hx Substance Use: Yes Other/Comment: stress - SURGICAL HISTORY Hx Surgeries: Yes Hx Herniorrhaphy: Yes (age 3) - ANESTHESIA Hx Anesthesia: Yes Hx Anesthesia Reactions: No Hx Malignant Hyperthermia: No Meds Home Medications: Home Medication List Medication Instructions Recorded Confirmed Type Aspirin [Ecotrin] 81 mg PO DAILY #30 tabec 12/10/17 Rx Atorvastatin [Lipitor] 10 mg PO DAILY #30 tab 12/10/17 Rx Allergies/Adverse Reactions: Allergies Allergy/AdvReac Type Severity Reaction Status Date / Time Penicillins Allergy RASH Verified 01/04/16 14:44 seafood Allergy SWELLING Uncoded 01/04/16 14:44 - Medications Medications: Current Medications Aspirin (Ecotrin) 81 mg PO DAILY [facility] Last Admin: 12/09/17 09:38 Dose: 81 mg Atorvastatin Calcium (Lipitor) 10 mg PO DAILY [facility] Last Admin: 12/09/17 09:38 Dose: 10 mg Enoxaparin Sodium (Lovenox) 40 mg SC DAILY [facility] PRN Reason: Protocol Last Admin: 12/09/17 09:38 Dose: 40 mg Sodium Chloride (Sodium Chloride 0.9%) 1,000 mls @ 125 mls/hr IV .Q8H [facility] Stop: 12/10/17 04:56 Last Admin: 12/09/17 15:35 Dose: 125 mls/hr Azithromycin 500 mg/ Sodium (Chloride) 250 mls @ 250 mls/hr IVPB DAILY [facility] PRN Reason: Protocol Last Admin: 12/09/17 05:32 Dose: 250 mls/hr Ketorolac Tromethamine (Toradol) 15 mg IVP Q6 PRN PRN Reason: Headache Lorazepam (Ativan) 1 mg IVP Q6 PRN PRN Reason: Agitation Nicotine (Nicoderm Cq) 1 patch TD DAILY [facility] Ondansetron HCl (Zofran Inj) 4 mg IVP Q4 PRN PRN Reason: Nausea/Vomiting Physical Exam - Constitutional Appears: No Acute Distress - Head Exam Head Exam: NORMAL INSPECTION - Eye Exam Eye Exam: PERRL - ENT Exam ENT Exam: Normal Exam - Neck Exam Neck exam: Positive for: Normal Inspection - Respiratory Exam Respiratory Exam: NORMAL BREATHING PATTERN - Cardiovascular Exam Cardiovascular Exam: Bradycardia - GI/Abdominal Exam GI & Abdominal Exam: Normal Bowel Sounds, Soft - Extremities Exam Extremities exam: Positive for: normal inspection - Back Exam Back exam: NORMAL INSPECTION - Neurological Exam Neurological exam: Alert, Oriented x3 Additional comments: No motor sensory deficit - Psychiatric Exam Psychiatric exam: Anxious - Skin Skin Exam: Normal Color, Warm Results - Vital Signs Recent Vital Signs: Last Vital Signs Temp 98 F 12/09/17 17:00 Pulse 53 L 12/09/17 17:00 Resp 17 12/09/17 17:00 BP 127/66 12/09/17 17:00 Pulse Ox 97 12/09/17 17:00 pao Keller - Labs Result Diagrams: 12/10/17 06:00 12/10/17 06:00 Labs: Laboratory Results - last 24 hr 12/09/17 12/09/17 12/09/17 03:23 03:35 03:35 WBC 8.0 RBC 4.55 Hgb 13.7 Hct 40.8 MCV 89.6 MCH 30.0 MCHC 33.5 RDW 13.9 Plt Count 251 MPV 7.9 Neut % (Auto) 53.7 Lymph % (Auto) 30.2 [place] % (Auto) 10.5 H Eos % (Auto) 4.8 H Baso % (Auto) 0.8 Neut # 4.3 Lymph # 2.4 [place] # 0.8 Eos # 0.4 Baso # 0.1 pCO2 47 H pO2 150 H HCO3 26.4 ABG pH 7.38 ABG Total CO2 29.2 H ABG O2 Saturation 98.9 H ABG O2 Content 18.5 ABG Base Excess 2.0 ABG Hemoglobin 14.0 ABG Carboxyhemoglobin 3.7 H POC ABG HHb (Measured) 1.0 ABG Methemoglobin 2.6 ABG O2 Capacity 18.7 Kali Test Yes A-a O2 Difference 19.0 Hgb O2 Saturation 92.6 L Vent Mode N/c FiO2 32.0 Sodium 143 Potassium 4.5 Chloride 105 Carbon Dioxide 26 Anion Gap 17 BUN 25 H Creatinine 0.7 L Est GFR ( Amer) > 60 Est GFR (Non-Af Amer) > 60 Random Glucose 86 Calcium 9.0 Total Bilirubin 0.3 AST 25 ALT 37 Alkaline Phosphatase 61 Troponin I < 0.0120 Total Protein 7.1 Albumin 4.1 Globulin 3.0 Albumin/Globulin Ratio 1.4 Triglycerides Cholesterol LDL Cholesterol Direct HDL Cholesterol Urine Opiates Screen Urine Methadone Screen Ur Barbiturates Screen Ur Phencyclidine Scrn Ur Amphetamines Screen U Benzodiazepines Scrn U Oth Cocaine Metabols U Cannabinoids Screen Alcohol, Quantitative < 10 Influenza Typ A,B (EIA) 12/09/17 12/09/17 12/09/17 03:35 06:00 07:16 WBC RBC Hgb Hct MCV MCH MCHC RDW Plt Count MPV Neut % (Auto) Lymph % (Auto) [place] % (Auto) Eos % (Auto) Baso % (Auto) Neut # Lymph # [place] # Eos # Baso # pCO2 pO2 HCO3 ABG pH ABG Total CO2 ABG O2 Saturation ABG O2 Content ABG Base Excess ABG Hemoglobin ABG Carboxyhemoglobin POC ABG HHb (Measured) ABG Methemoglobin ABG O2 Capacity Kali Test A-a O2 Difference Hgb O2 Saturation Vent Mode FiO2 Sodium Potassium Chloride Carbon Dioxide Anion Gap BUN Creatinine Est GFR ( Amer) Est GFR (Non-Af Amer) Random Glucose Calcium Total Bilirubin AST ALT Alkaline Phosphatase Troponin I < 0.0120 Total Protein Albumin Globulin Albumin/Globulin Ratio Triglycerides 161 H Cholesterol 141 LDL Cholesterol Direct 81 HDL Cholesterol 46 Urine Opiates Screen Negative Urine Methadone Screen Negative Ur Barbiturates Screen Negative Ur Phencyclidine Scrn Negative Ur Amphetamines Screen Negative U Benzodiazepines Scrn Negative U Oth Cocaine Metabols Positive H U Cannabinoids Screen Negative Alcohol, Quantitative Influenza Typ A,B (EIA) Negative for flu a/b reviewed J.P. - EKG Data EKG comments: reviewed J.P. - Imaging and Cardiology Chest x-ray Status: Report reviewed by me (Arianna) Assessment & Plan (1) Carbon monoxide exposure Status: Acute Priority: High (2) Atelectasis of both lungs Status: Acute Priority: High - Assessment and Plan (Free Text) Plan: ABG Carboxyhemoglobin 3.7 , CXR Atelectasis LL R>L , Nicotine Patch , Repeat CXR in AM., f/u ABG - Date & Time Date: 12/09/17
--- NOTE | 2017-12-09 18:08 | CARD ---
APPROVED REPORT EKG Measurement Heart [id number] <Conclusion> Sinus bradycardia Voltage criteria for left ventricular hypertrophy Abnormal ECG
[2017-12-09 18:34] VITALS: BMI 23.1
[2017-12-10 01:05] VITALS: RESP 18
[2017-12-10 07:27] LABS: HEMOGLOBIN 14.3 g/dL (12.0-18.0); MEAN CORPUSCULAR HEMOGLOBIN 29.5 pg (27.0-31.0); MEAN CORPUSCULAR HGB CONC 32.8 g/dL (33.0-37.0); RBC 4.84 Mil/uL (4.40-5.90); RED CELL DISTRIBUTION WIDTH 13.8 % (11.5-14.5); WHITE BLOOD COUNT 10.5 K/uL (4.8-10.8)
[2017-12-10 08:13] LABS: BLOOD UREA NITROGEN 19 mg/dl (9-20); CALCIUM 8.9 mg/dL (8.4-10.2); GFR AFRICAN-AMERICAN > 60; GFR NON-AFRICAN AMERICAN > 60
[2017-12-10 08:23] VITALS: BP 122/72; PULSE 44; TEMP 97.7; O2SAT 97
[2017-12-10] MEDS: Azithromycin 500 MG in Sodium Chloride 0.9% 250 ML IVPB SCH (09:57)
[2017-12-10] MEDS: Enoxaparin 40 mg Syringe SC SCH (09:58)
[2017-12-10 10:24] LABS: ABG ALLEN TEST YES; ARTERIAL BLOOD GAS HCO3 24.7 mmol/L (21-28); ARTERIAL BLOOD GAS HEMOGLOBIN 14.7 g/dL (11.7-17.4); ARTERIAL BLOOD GAS O2 CAPACITY 20.1 mL/dL (16-24); ARTERIAL BLOOD GAS O2 CONTENT 19.7 ML/dL (15-23); ARTERIAL BLOOD GAS O2 SAT 97.9 % (95-98); ARTERIAL BLOOD GAS PCO2 41 mm/Hg (35-45); ARTERIAL BLOOD GAS PH 7.39 (7.35-7.45); ARTERIAL BLOOD GAS PO2 78 mm/Hg (80-100); ARTERIAL BLOOD GAS TCO2 26.1 mmol/L (22-28)
--- NOTE | 2017-12-10 10:39 | RAD ---
HISTORY: abn CXR COMPARISON: Comparison chest 12/09/2017 TECHNIQUE: Chest PA and lateral FINDINGS: LUNGS: Minor linear scarring and/or atelectasis both lung bases left greater than right. Questionable small blebs or bullous changes in both lung apices. Lung douglas are hyperinflated with flattened diaphragms suggesting underlying COPD or possibly a emphysema. There may also be some linear fibrosis and or scarring in the right upper lobe. PLEURA: No significant pleural effusion identified. No pneumothorax apparent. CARDIOVASCULAR: Normal. OSSEOUS STRUCTURES: No significant abnormalities. VISUALIZED UPPER ABDOMEN: Normal. OTHER FINDINGS: None. IMPRESSION: No acute consolidation. Minor linear scarring and/or atelectasis both lung bases left greater than right. Questionable small blebs or bullous changes in both lung apices. Lung douglas are hyperinflated with flattened diaphragms suggesting underlying COPD or possibly a emphysema. There may also be some linear fibrosis and or scarring in the right upper lobe.
--- NOTE | 2017-12-10 11:39 | CP.PCM.DIS ---
Provider - Provider Date of Admission: 12/09/17 04:11 Attending physician: Tee Huff Time Spent in preparation of Discharge (in minutes): 30 Diagnosis - Discharge Diagnosis (1) Carbon monoxide exposure Status: Acute (2) Cocaine abuse Status: Acute Hospital Course - Lab Results Lab Results: Most Recent Lab Values WBC 10.5 K/uL (4.8-10.8) 12/10/17 06:00 RBC 4.84 Mil/uL (4.40-5.90) 12/10/17 06:00 Hgb 14.3 g/dL (12.0-18.0) 12/10/17 06:00 Hct 43.6 % (35.0-51.0) 12/10/17 06:00 MCV 90.0 fl (80.0-94.0) 12/10/17 06:00 MCH 29.5 pg (27.0-31.0) 12/10/17 06:00 MCHC 32.8 g/dL (33.0-37.0) L 12/10/17 06:00 RDW 13.8 % (11.5-14.5) 12/10/17 06:00 Plt Count 245 K/uL (130-400) 12/10/17 06:00 MPV 7.9 fl (7.2-11.7) 12/09/17 03:35 Neut % (Auto) 53.7 % (50.0-75.0) 12/09/17 03:35 Lymph % (Auto) 30.2 % (20.0-40.0) 12/09/17 03:35 [place] % (Auto) 10.5 % (0.0-10.0) H 12/09/17 03:35 Eos % (Auto) 4.8 % (0.0-4.0) H 12/09/17 03:35 Baso % (Auto) 0.8 % (0.0-2.0) 12/09/17 03:35 Neut # 4.3 K/uL (1.8-7.0) 12/09/17 03:35 Lymph # 2.4 K/uL (1.0-4.3) 12/09/17 03:35 [place] # 0.8 K/uL (0.0-0.8) 12/09/17 03:35 Eos # 0.4 K/uL (0.0-0.7) 12/09/17 03:35 Baso # 0.1 K/uL (0.0-0.2) 12/09/17 03:35 pCO2 41 mm/Hg (35-45) 12/10/17 10:19 pO2 78 mm/Hg (80-100) L 12/10/17 10:19 HCO3 24.7 mmol/L (21-28) 12/10/17 10:19 ABG pH 7.39 (7.35-7.45) 12/10/17 10:19 ABG Total CO2 26.1 mmol/L (22-28) 12/10/17 10:19 ABG O2 Saturation 97.9 % (95-98) 12/10/17 10:19 ABG O2 Content 19.7 ML/dL (15-23) 12/10/17 10:19 ABG Base Excess -0.2 mmol/L (-2.0-3.0) 12/10/17 10:19 ABG Hemoglobin 14.7 g/dL (11.7-17.4) 12/10/17 10:19 ABG Carboxyhemoglobin 1.8 % (0.5-1.5) H 12/10/17 10:19 POC ABG HHb (Measured) 2.0 % (0.0-5.0) 12/10/17 10:19 ABG Methemoglobin 1.0 % (0.0-3.0) 12/10/17 10:19 ABG O2 Capacity 20.1 mL/dL (16-24) 12/10/17 10:19 Kali Test Yes 12/10/17 10:19 A-a O2 Difference 20.0 mm/Hg 12/10/17 10:19 Hgb O2 Saturation 95.2 % (95.0-98.0) 12/10/17 10:19 Vent Mode N/c 12/09/17 03:23 FiO2 21.0 % 12/10/17 10:19 Sodium 141 mmol/l (132-148) 12/10/17 06:00 Potassium 4.5 MMOL/L (3.6-5.0) 12/10/17 06:00 Chloride 106 mmol/L (98-107) 12/10/17 06:00 Carbon Dioxide 26 mmol/L (22-30) 12/10/17 06:00 Anion Gap 14 (10-20) 12/10/17 06:00 BUN 19 mg/dl (9-20) 12/10/17 06:00 Creatinine 0.7 mg/dl (0.8-1.5) L 12/10/17 06:00 Est GFR ( Amer) > 60 12/10/17 06:00 Est GFR (Non-Af Amer) > 60 12/10/17 06:00 Random Glucose 92 mg/dL (75-110) 12/10/17 06:00 Calcium 8.9 mg/dL (8.4-10.2) 12/10/17 06:00 Total Bilirubin 0.3 mg/dl (0.2-1.3) 12/09/17 03:35 AST 25 U/L (17-59) 12/09/17 03:35 ALT 37 U/L (21-72) 12/09/17 03:35 Alkaline Phosphatase 61 U/L (38-126) 12/09/17 03:35 Troponin I < 0.0120 ng/mL (0.00-0.120) 12/10/17 06:00 Total Protein 7.1 G/DL (6.3-8.2) 12/09/17 03:35 Albumin 4.1 g/dL (3.5-5.0) 12/09/17 03:35 Globulin 3.0 gm/dL (2.2-3.9) 12/09/17 03:35 Albumin/Globulin Ratio 1.4 (1.0-2.1) 12/09/17 03:35 Triglycerides 161 mg/DL (0-149) H 12/09/17 06:00 Cholesterol 141 mg/dL (0-199) 12/09/17 06:00 LDL Cholesterol Direct 81 mg/dL (0-129) 12/09/17 06:00 HDL Cholesterol 46 MG/DL (30-70) 12/09/17 06:00 Urine Opiates Screen Negative (NEGATIVE) 12/09/17 03:35 Urine Methadone Screen Negative (NEGATIVE) 12/09/17 03:35 Ur Barbiturates Screen Negative (NEGATIVE) 12/09/17 03:35 Ur Phencyclidine Scrn Negative (NEGATIVE) 12/09/17 03:35 Ur Amphetamines Screen Negative (NEGATIVE) 12/09/17 03:35 U Benzodiazepines Scrn Negative (NEGATIVE) 12/09/17 03:35 U Oth Cocaine Metabols Positive (NEGATIVE) H 12/09/17 03:35 U Cannabinoids Screen Negative (NEGATIVE) 12/09/17 03:35 Alcohol, Quantitative < 10 mg/dl (0-10) 12/09/17 03:35 HIV-1 Ab Rapid Screen Non reactive (NON REAC) 12/09/17 17:01 Influenza Typ A,B (EIA) Negative for flu a/b (NEGATIVE) 12/09/17 07:16 - Hospital Course Hospital Course: 52 years old male with hx of CAD, Pneumonia, Depression and CAD comes with worsening of a Precordial chest tight that is continuous associated with Nausea and headache 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 Repeat CXR infiltrate resolved. No PNA. No ACS, no chest pain. Carboxyhemoglobin at nearly resolved level, patient no longer wearing NRBM O2. Stable for discharge home with follow up with PCP. Advised cocaine cessation. Discharge Exam - Head Exam Head Exam: ATRAUMATIC, NORMOCEPHALIC - Eye Exam Eye Exam: EOMI, Normal appearance, PERRL - Respiratory Exam Respiratory Exam: Clear to PA & Lateral, NORMAL BREATHING PATTERN - Cardiovascular Exam Cardiovascular Exam: RRR, +S1, +S2 - GI/Abdominal Exam GI & Abdominal Exam: Normal Bowel Sounds, Soft. absent: Mass, Organomegaly - Extremities Exam Extremities exam: normal capillary refill, pedal pulses present - Back Exam Back exam: absent: CVA tenderness (L), CVA tenderness (R) - Neurological Exam Neurological exam: Alert, Normal Gait - Psychiatric Exam Psychiatric exam: Normal Affect, Normal Mood - Skin Skin Exam: Dry, Normal Color Discharge Plan - Discharge Medications Prescriptions: Aspirin [Ecotrin] 81 mg PO DAILY #30 tabec Atorvastatin [Lipitor] 10 mg PO DAILY #30 tab - Follow Up Plan Condition: FAIR Disposition: HOME/ ROUTINE Additional Instructions: FOLLOW UP PCP IN ONE WEEK.
--- NOTE | 2017-12-10 19:47 | CP.PCM.PN ---
Subjective - Subjective Subjective: no AD , N/C , no SOB , no C/P Objective - Vital Signs/Intake and Output Vital Signs (last 24 hours): Temp Pulse Resp BP Pulse Ox 97.7 F 44 L 18 122/72 97 12/10/17 09:00 12/10/17 09:00 12/10/17 09:00 12/10/17 09:00 12/10/17 09:00 - Labs Labs: 12/10/17 06:00 12/10/17 06:00 - Head Exam Head Exam: NORMAL INSPECTION - Eye Exam Eye Exam: PERRL - ENT Exam ENT Exam: Normal Exam - Neck Exam Neck Exam: Normal Inspection - Respiratory Exam Respiratory Exam: Clear to Ausculation Bilateral - Cardiovascular Exam Cardiovascular Exam: REGULAR RHYTHM - GI/Abdominal Exam GI & Abdominal Exam: Soft, Normal Bowel Sounds - Extremities Exam Extremities Exam: Normal Inspection - Back Exam Back Exam: NORMAL INSPECTION - Neurological Exam Neurological Exam: Alert, Oriented x3. absent: CN II-XII Intact - Psychiatric Exam Psychiatric exam: Normal Affect - Skin Skin Exam: Warm Assessment and Plan (1) Carbon monoxide exposure Status: Acute (2) Atelectasis of both lungs Status: Acute (3) COPD (chronic obstructive pulmonary disease) Status: Acute - Assessment and Plan (Free Text) Plan: CXR Atelectasis/scarring bases, ABG Carboxyhemoglobin 1.8 , Pulmonary cleared for discharge , smoking cessation.
== END 2017-12-10 13:40 | disposition home or self-care (01) ==
LOC: H.ER 02:28 → H.ERHOLD 04:11 → H.TEL 16:17
PROVIDERS: ADMIT Internal Medicine; ATTEND Internal Medicine
DX: Z77.028 Contact with and (suspected) exposure to other hazardous aromatic compounds (principal); F14.10 Cocaine abuse, uncomplicated; E86.0 Dehydration; Z88.0 Allergy status to penicillin; Z91.013 Allergy to seafood; Z23 Encounter for immunization; F17.210 Nicotine dependence, cigarettes, uncomplicated; F41.9 Anxiety disorder, unspecified; I25.10 Atherosclerotic heart disease of native coronary artery without angina pectoris; F32.9 Major depressive disorder, single episode, unspecified; J98.11 Atelectasis
CPT/HCPCS: 36415; 71045; 71046; 80048; 80053; 80061; 80320; 80324; 80345; 80346; 80349; 80353; 80358; 80361; 82803; 83992; 84484; 85025; 85027; 87390; 87804; 90471; 90732; 93005; 96360; 96361; 96365; 96372; 96374; 99285; G0378; J0456; J1650; J1885; J2405; J7040; Q2035

== ENCOUNTER 2018-02-11 02:25 | Emergency (ER) | payer MEDICAID ==
[2018-02-11 02:25] VITALS: BMI 23.1
[2018-02-11 02:41] VITALS: RESP 18
--- NOTE | 2018-02-11 04:07 | ED PDOC ---
HPI: Chest Pain Time Seen by Provider: 02/11/18 02:50 Chief Complaint (Nursing): Chest Pain Chief Complaint (Provider): Chest Pain History Per: Patient History/Exam Limitations: no limitations Onset/Duration Of Symptoms: Mins (prior to arrival) Current Symptoms Are (Timing): Still Present Additional Complaint(s): Shay Florian is a 52 year old male with a past medical history of CAD, heart attack, depression, and anxiety, who is presenting to the ER with complaints of chest pain, onset prior to arrival. Patient states that he was sitting in a [employer] with his intoxicated girlfriend and were kicked out, which is when he started having chest pain. He thinks it's just his muscles and that it isn't his heart. Patient reports that he started having cough 2 days ago, with productive sputum and that his girlfriend was recently diagnosed with the flu. He denies any hemoptysis, leg swelling, or shortness of breath. PMD: none provided Past Medical History Reviewed: Historical Data, Nursing Documentation, Vital Signs Vital Signs: Last Vital Signs Temp 97.5 F L 02/11/18 04:32 Pulse 51 L 02/18/18 20:31 Resp 18 02/11/18 04:32 BP 125/85 02/11/18 04:32 Pulse Ox 96 02/18/18 20:31 - Medical History PMH: Anxiety, CAD, Depression, Pneumonia, Schizophrenia Denies: Diabetes, Hepatitis, HIV, HTN, Chronic Kidney Disease, Seizures, Sexually Transmitted Disease - Surgical History Surgical History: No Surg Hx - Family History Family History: States: Unknown Family Hx - Social History Current smoker - smoking cessation education provided: Yes Alcohol: None Drugs: Denies - Immunization History Hx Tetanus Toxoid Vaccination: No Hx Influenza Vaccination: No Hx Pneumococcal Vaccination: No - Home Medications Home Medications: Ambulatory Orders Medication Instructions Recorded Aspirin [Ecotrin] 81 mg PO DAILY #30 tabec 12/10/17 Atorvastatin [Lipitor] 10 mg PO DAILY #30 tab 12/10/17 Albuterol HFA [Ventolin HFA 90 2 puff IH Q4H PRN #1 inh 02/11/18 mcg/actuation (8 g)] Azithromycin [Zithromax] 250 mg PO DAILY #6 dose 02/11/18 - Allergies Allergies/Adverse Reactions: Allergies Allergy/AdvReac Type Severity Reaction Status Date / Time Penicillins Allergy RASH Verified 01/04/16 14:44 seafood Allergy SWELLING Uncoded 01/04/16 14:44 Review of Systems ROS Statement: Except As Marked, All Systems Reviewed And Found Negative ENT: Negative for: Other (hemoptysis) Cardiovascular: Positive for: Chest Pain Respiratory: Positive for: Cough. Negative for: Shortness of Breath Musculoskeletal: Negative for: Other (pedal edema) Physical Exam - Reviewed Nursing Documentation Reviewed: Yes Vital Signs Reviewed: Yes - Physical Exam Appears: Positive for: No Acute Distress (on arrival to room, petient sleeping comfortably) Head Exam: Positive for: ATRAUMATIC, NORMOCEPHALIC Skin: Positive for: Warm, Dry Eye Exam: Positive for: EOMI, PERRL ENT: Negative for: Pharyngeal Erythema, Tonsillar Exudate Neck: Positive for: Painless ROM, Supple Cardiovascular/Chest: Positive for: Regular Rate, Rhythm. Negative for: Murmur Respiratory: Positive for: Rhonchi (bilateral). Negative for: Accessory Muscle Use, Respiratory Distress Gastrointestinal/Abdominal: Positive for: Soft. Negative for: Tenderness Back: Positive for: Normal Inspection. Negative for: Decreased ROM Extremity: Positive for: Normal ROM. Negative for: Deformity Lymphatic: Negative for: Adenopathy Neurologic/Psych: Positive for: Alert. Negative for: Motor/Sensory Deficits - ECG ECG Rhythm: Positive for: Normal QRS, Sinus Bradycardia Interpretation Of ECG: No ST elevation, T wave inversion at lead I and II, similar to past EKG done in Nov 2017 Rate: 51 O2 Sat by Pulse Oximetry: 96 (RA) Pulse Ox Interpretation: Normal Medical Decision Making Medical Decision Making: Time: 2:59 Impression: cough, chest pain Differentials (including but not limited to): costochondritis, pneumonia, bronchitis Plan: --CXR --Influenza A B --EKG Chest X-Ray: No acute findings. Scribe Attestation: Documented by Nancy Acosta acting as a scribe for An Guevara MD. Scribe Attestation: All medical record entries made by the Scribe were at my direction and personally dictated by me. I have reviewed the chart and agree that the record accurately reflects my personal performance of the history, physical exam, medical decision making, and the department course for this patient. I have also personally directed, reviewed, and agree with the discharge instructions and disposition. Disposition - Clinical Impression Clinical Impression: Bronchitis - Disposition Referrals: [facility] [Outside] - 02/13/18 (FOLLOW UP WITH YOUR DOCTOR OR CLINIC NEXT WEEK FOR REEVALUATION) Disposition: Routine/Home Disposition Time: 04:00 Condition: STABLE Prescriptions: Albuterol HFA [Ventolin HFA 90 mcg/actuation (8 g)] 2 puff IH Q4H PRN #1 inh PRN Reason: ASTHMA Azithromycin [Zithromax] 250 mg PO DAILY #6 dose Instructions: Chest Pain That Is Not Caused by the Heart (DC), Acute Bronchitis , Adult (DC), Quitting Smoking Forms: [employer] (Samoan)
[2018-02-11 04:33] VITALS: BP 125/85; TEMP 97.5
--- NOTE | 2018-02-11 10:40 | RAD ---
HISTORY: cough chest pain COMPARISON: Chest radiograph dated 12/10/2017 FINDINGS: LUNGS: No active pulmonary disease. PLEURA: No significant pleural effusion identified, no pneumothorax apparent. CARDIOVASCULAR: Normal. OSSEOUS STRUCTURES: Unchanged. VISUALIZED UPPER ABDOMEN: Normal. OTHER FINDINGS: None. IMPRESSION: No active disease.
--- NOTE | 2018-02-12 00:14 | CARD ---
APPROVED REPORT EKG Measurement Heart [id number] <Conclusion> Sinus bradycardia Possible Left atrial enlargement Left ventricular hypertrophy Abnormal ECG
[2018-02-18 20:31] VITALS: PULSE 51; O2SAT 96
== END 2018-02-11 04:33 | disposition home or self-care (01) ==
LOC: H.ER 02:25
DX: J40 Bronchitis, not specified as acute or chronic (principal); F17.200 Nicotine dependence, unspecified, uncomplicated; Z86.59 Personal history of other mental and behavioral disorders; I25.2 Old myocardial infarction; Z88.0 Allergy status to penicillin; Z79.82 Long term (current) use of aspirin; I25.10 Atherosclerotic heart disease of native coronary artery without angina pectoris